=== PATIENT | male | born 1945 | race Caucasian/White ===

== ENCOUNTER → 2016-08-13 | Outpatient (CLI) | payer BC | LOC: FIMAGING 13:07 | PROVIDERS: ATTEND Internal Medicine Hematology & Oncology | DX: R05 Cough (principal); R50.9 Fever, unspecified; D70.9 Neutropenia, unspecified ==

== ENCOUNTER → 2016-09-07 | Day surgery (SDC) | payer BC ==
[~2016-09-07] MED LIST: ACETAMINOPHEN 325 MG TAB PO ONE; diphenhydrAMINE 25 MG CAP PO ONE
== END | disposition home or self-care (01) ==
LOC: FIMAGING 10:40
PROVIDERS: ATTEND Internal Medicine Hematology & Oncology
PROC: 30233N1 Transfusion of Nonautologous Red Blood Cells into Peripheral Vein, Percutaneous Approach (ICD-10-PCS; principal; 2016-09-07)
DX: D46.9 Myelodysplastic syndrome, unspecified (principal)
CPT/HCPCS: P9040

== ENCOUNTER 2016-09-17 15:50 | Observation (INO) | payer OTHER, BC ==
[2016-09-17] MEDS ORDERED: oxyCODONE IR 5 MG TAB PO PRN (18:11)
[2016-09-17] MEDS ORDERED: ONDANSETRON 4 MG/2 ML VIAL IVP PRN (18:11)
[2016-09-17] MEDS ORDERED: ONDANSETRON DISINTEGRATING 4 MG TAB PO PRN (18:11)
[2016-09-17] MEDS ORDERED: ZOLPIDEM TARTRATE 5 MG TAB PO PRN (18:11)
[2016-09-17] MEDS ORDERED: ACETAMINOPHEN 325 MG TAB PO PRN (18:11)
--- NOTE | 2016-09-17 19:17 | GHP ---
[f rep st] HISTORY AND PHYSICAL DATE OF ADMISSION: 09/17/2016 CHIEF COMPLAINT: Fatigue. HISTORY: This is a 71-year-old man with past medical history of myelodysplastic syndrome, followed by Dr. Scales who presents with need for transfusion. The patient has chronic anemia related to his MDS. He notes he has been having more fatigue and feels as if his heart has been beating fast recen tly. On evaluation by Dr. Scales, he was found to have a hemoglobin of 6.3 and hematocrit of 18.7, a nd given the late day appointment and desire to transfuse 2 units of irradiated red blood cells, he was sent in for overnight observation and transfusion. The patient denies any other symptoms other than fatigue and tachycardia. He notes that he has not been eating well and has had less of an appe tite recently. PAST MEDICAL HISTORY: Includes myelodysplastic syndrome. FAMILY HISTORY: Noncontributory. SOCIAL HISTORY: The patient is . Lives with his . He denies drinking or alcohol. REVIEW OF SYSTEMS: 10-point review of systems obtained and negative, except as per HPI. HOME MEDICATIONS: None. ALLERGIES: None. PHYSICAL EXAM: GENERAL: Thin, chronically ill-appearing male. He is awake and alert. He is in no acute distress. EYES: Anicteric. HEENT: Oropharynx clear. CARDIOVASCULAR: RRR, no MRG. PULMO NARY: CTA bilaterally. ABDOMEN: Soft, nontender, nondistended. EXTREMITIES: No clubbing, cyanosis, or edema. SKIN: War m, pale, well perfused. NEURO/PSYCH: Oriented, appropriate, pleasant. LAB DATA: White blood cell count of 0.93 hemoglobin, 6.3, hematocrit of 18.7, platelets of 11. Katya andie: Creatinine 1.0, glucose of 139. Total protein 5.7, albumin 3.4. ASSESSMENT/PLAN: A 71-year-old male, myelodysplastic syndrome, and chronic pancytopenia presenting with anemia in need for blood transfusion. 1. Anemia. Patient's H and H have dropped below the level considered safe and he is symptomatic wi th fatigue and tachycardia. He will be transfused 2 units of irradiated red blood cells. He will b e monitored overnight. 2. Pancytopenia. Platelets are quite low but in the absence of any signs or symptoms of bleeding a t this point. White count also very low. We will place the patient on neutropenic precautions. Th is is secondary to his MDS which is being followed by Dr. Scales. 3. Myelodysplastic syndrome. As per above. Plan for transfusion today. 4. Tachycardia. At the time of my evaluation, patient's heart rate is in the 70s or 80s. If he myles s recurrent feelings of tachycardia, will obtain EKG. 5. Disposition. Observation status. Suspect he will need less than 48 hours stay for evaluation a nd management of above. Patient is new to my care. Old records reviewed, summarized as per HPI and past medical history. C are plan reviewed with Dr. Scales including plans for transfusion. /[id number]/MODL
[2016-09-17 23:42] VITALS: RESP 16
[2016-09-18 06:21] LABS: ADD DIFF? YES; ADD MORPH? NO; ATYPICAL LYMPHOCYTE FLAG 0 (0-99); FRAGMENT RBC FLAG 0 (0-99); HEMOGLOBIN 7.7 g/dL (13.7-17.5); LEFT SHIFT FLG 50 (0-99); LIPEMIA HEMOLYSIS FLAG 90 (0-99); MEAN CELL HEMOGLOBIN 30.4 pg (27.9-34.1); PLATELET CLUMPS FLAG 0 (0-99); RED BLOOD CELL COUNT 2.53 10^6/uL (4.40-6.38); RED CELL DISTRIBUTION WIDTH 14.1 % (11.5-15.2)
[2016-09-18 06:24] LABS: ADD SCAN? NO; PLATELET COUNT 9 10^3/uL (150-400)
[2016-09-18 06:39] LABS: ANION GAP 9 mEq/L (8-16); CALCIUM 8.3 mg/dL (8.5-10.4); CARBON DIOXIDE 19 mEq/l (22-31); CHLORIDE 113 mEq/L (97-110); CREATININE 0.8 mg/dL (0.7-1.3); GLOMERULAR FILTRATION RATE > 60; GLUCOSE 88 mg/dL (70-100); POTASSIUM 4.2 mEq/L (3.5-5.2); SODIUM 141 mEq/L (134-144)
[2016-09-18 07:36] LABS: ACANTHOCYTES 1+; PLATELET ESTIMATE DECREASED (ADEQ)
--- NOTE | 2016-09-18 10:24 | HOSPPROG ---
Hospitalist Progress Note Assessment/Plan: A 71-year-old previously healthy man was recently diagnosed with pancytopenia and likely MDS. He has been transfusion dependent since late July requiring multiple transfusions of packed red blood cells. He is admitted today for increased weakness and anemia, he is status post 2 units overnight. He also has thrombocytopenia with a dropping platelet count to 9, he has no active bleeding currently # anemia, transfusion dependent secondary to MDS, status post 2 units with improvement in his vital signs and symptoms subjectively * Continue to follow and transfuse as needed. He is seeking a 2nd opinion by a electronics system mechanic in [place] at [facility] this week. # thrombocytopenia, he has not yet needed any transfusion of platelets, he is not reluctant to get the transfusion he states but would like to make sure it is necessary prior to transfusion. He has no active bleeding on exam. * Will discuss with Oncology prior to transfusion per patient request. # DVT prophylaxis given patient's thrombocytopenia he is not on chemical prophylaxis at this time. Will encourage ongoing ambulation. Subjective: Patient new to me and chart reviewed. No current shortness of breath or chest pain although he has not yet gotten out of bed this morning. He typically does get dyspnea on exertion with walking across the room. Objective: Vital Signs Temp Pulse Resp BP Pulse Ox 36.7 C 66 16 100/56 L 97 09/18/16 08:50 09/18/16 08:50 09/18/16 08:50 09/18/16 08:50 09/18/16 08:50 Laboratory Results 09/18/16 06:15 09/18/16 06:15 09/17/16 09/18/16 09/19/16 05:59 05:59 05:59 Intake Total 1300 Output Total 200 Balance 1100 - Physical Exam Constitutional: chronically ill appearing, uncomfortable Eyes: PERRL, anicteric sclera, EOMI, pale conjunctiva Ears, Nose, Mouth, Throat: moist mucous membranes, hearing normal Cardiovascular: regular rate and rhythym, no murmur, rub, or gallop Respiratory: no respiratory distress, no rales or rhonchi, clear to auscultation Gastrointestinal: normoactive bowel sounds, soft, non-tender abdomen, no palpable masses Genitourinary: no bladder fullness Skin: warm, No normal color (Pale) Musculoskeletal: generalized weakness Neurologic: AAOx3, sensation intact bilaterally, No facial droop Psychiatric: interacting appropriately, not anxious, not encephalopathic ICD10 Worksheet Patient Problems: Problems Problem Status Onset Anemia Acute
[2016-09-18 13:24] VITALS: O2SAT 98
--- NOTE | 2016-09-18 13:29 | GCON ---
[f rep st] CONSULTATION HEMATOLOGY CONSULTATION DATE OF CONSULTATION: 09/18/2016 REASON FOR CONSULTATION: Myelodysplastic syndrome with pancytopenia. HISTORY OF PRESENT ILLNESS: The patient is a 71-year-old gentleman who is followed by my partner, Tatiana glenis Scales. The patient was diagnosed with myelodysplastic syndrome in July of this year. He presented with pancytopenia. He has required a total of 11 units of packed red cells since that . The patient had a bone marrow biopsy and aspirate done to evaluate his condition. 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 Based on his bone marrow biopsy, it was felt that his condition best represented a myelodysplastic syndrome a s opposed to aplastic anemia. He was started on 5 azacytidine and completed his first cycle (5 alhaji tments) on September 10. As a result of his treatment, he has had transient worsening of his blood count s. He was admitted to the hospital last evening with worsening fatigue. At the time of hospital ad mission, he was found to be significantly pancytopenic with a white count of 0.93, hemoglobin of 6.3 , and a platelet count of 11,000. Overnight, he received 2 units of packed red cells. This morning , his white count is 1050, with a hemoglobin of 7.7 and a platelet count of 9000. He has been somew hat hesitant to receive platelets. He has had no clinical evidence of bleeding. His is at the bedside today. He denies headache, visual change, mucosal bleeding, epistaxis, or easy bruisabilit y. Denies abdominal pain. He does report continued exertional dyspnea and significant fatigue and thinks he may need an additional unit of packed red cells. PAST MEDICAL HISTORY: Myelodysplastic syndrome, as outlined above, otherwise unremarkable. FAMILY HISTORY: Noncontributory. SOCIAL HISTORY: The patient is . He lives in [place]. 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 He is a nonsmoker. REVIEW OF SYSTEMS: As above. PHYSICAL EXAM: GENERAL: Patient is lying comfortably, in no acute distress. HEENT: Conjunctival pallor is present. No evidence of epistaxis or gingival bleeding. HEART: Regular, without murmur. LUNGS: Clear bilaterally. ABDOMEN: Soft, nontender, nondistended. SKIN: No visible ecchymosis or petechiae. NEURO: Patient is alert, oriented, and appropriate. LABORATORY STUDIES: As outlined above. Chemistries from today: Sodium 141, potassium 4.2, chlorid e 113, bicarb 19, creatinine 0.8. IMPRESSION: 1. 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 2. Pancytopenia secondary to #1. The patient is a 71-year-old gentleman with a recent diagnosis of mild dysplastic syndrome, who pres ents with symptomatic anemia. He received 2 units of packed red cells overnight. His hemoglobin has come up to 7.7. He still fee ls weak and fatigued and requests an additional 1 unit of packed red cells. I had a lengthy discussion with the patient regarding the pros and cons of platelet transfusion. We discussed that there is no absolute trigger for platelet transfusion, but in general, it is recomme nded with a platelet count of less than 10,000. We discussed the increased risk of spontaneous blee ding. The risks of transfusion therapy were again reviewed with the patient, including the risks of alloimmunization, transfusion reaction, infection. At the end of this discussion, he consents to p latelet transfusion and requests it. He will be given 1 unit of platelets, in addition to 1 unit of packed red cells. If he is doing well after transfusion, he could be potentially discharged home. He does have an out patient followup already set with Dr. Scales on Tuesday of this week and has a second opinion consu ltation with Dr. Jenkins at [facility] on Tuesday of this week. The patient and his had numerous questions regarding his diagnosis and treatment options, which were answered. It would certainly be reasonable to consider repeating his bone marrow biopsy, as well as sending a peripheral blood flow cytometry for [facility]. He will plan on discussing this with both Dr. Jenkins and Dr Dilip Scales in the outpatient setting. His case was discussed with Dr. Coto of the hospitalist service. Total time for today's visit was approximately 70 minutes, of which greater than 50% was spent in co unseling and care coordination. /[id number]/MODL
[2016-09-18 16:56] VITALS: BP 100/58; PULSE 63; TEMP 98.5
--- NOTE | 2016-09-19 09:01 | GDS ---
[f rep st] DISCHARGE SUMMARY DIAGNOSES: 1. Symptomatic anemia. 2. Thrombocytopenia. 3. Myelodysplastic syndrome with pancytopenia. CONSULTATIONS: Dr. Cleaning. PROCEDURES DONE: Transfusions. HISTORY OF PRESENT ILLNESS: The patient is a 71-year-old previously healthy man who was recently di agnosed with myelodysplastic syndrome. He presented with pancytopenia and symptomatic anemia. He h as already received multiple transfusions in the outpatient setting, however, came in today with inc reasing shortness of breath and dyspnea on exertion. He was noted to have a hemoglobin of 6.8 on ad mission. He was transfused 2 units and remained symptomatic so an additional unit of packed red blo od cells was given. He also had severe thrombocytopenia with a platelet count of 9000 and was trans fused 1 unit. He tolerated the transfusions well without any significant side effects, and post tra nsfusion he was able to go home. CONDITION ON DISCHARGE: Good. Vital signs remained stable. He was afebrile, heart rate 63, blood pressure 100/58, which is stable for him, with a 98% room-air saturation. DISCHARGE MEDICATIONS: Please refer to discharge medication list. FOLLOWUP INSTRUCTIONS: He will follow up with Dr. Scales this week to repeat his blood counts. He a lso has a followup scheduled with a second opinion with a shear tender in [place]. /[id number]/MODL
== END 2016-09-18 18:40 | disposition home or self-care (01) ==
LOC: FOBOP 15:50 → F1N 17:44
PROVIDERS: ADMIT Internal Medicine; ATTEND Internal Medicine
PROC: 30233N1 Transfusion of Nonautologous Red Blood Cells into Peripheral Vein, Percutaneous Approach (ICD-10-PCS; principal; 2016-09-17)
PROC: 30233R1 Transfusion of Nonautologous Platelets into Peripheral Vein, Percutaneous Approach (ICD-10-PCS; 2016-09-18)
DX: D46.9 Myelodysplastic syndrome, unspecified (principal); D63.0 Anemia in neoplastic disease; D69.6 Thrombocytopenia, unspecified; D61.818 Other pancytopenia
CPT/HCPCS: G0378; G0379; P9037; P9040

== ENCOUNTER 2016-09-28 14:43 | Outpatient (CLI) | payer OTHER, BC | END 2016-09-29 00:20 | disposition home or self-care (01) | LOC: FOBOP 14:43 | PROVIDERS: ATTEND Internal Medicine Hematology & Oncology | PROC: 30233N1 Transfusion of Nonautologous Red Blood Cells into Peripheral Vein, Percutaneous Approach (ICD-10-PCS; principal; 2016-09-28) | DX: D46.9 Myelodysplastic syndrome, unspecified (principal) | CPT/HCPCS: 36430; P9040; P9016 ==